=== PATIENT | female | born 1980 | race Caucasian/White ===

== ENCOUNTER 2019-08-12 05:58 | Inpatient (IN) ==
[2019-08-12] MEDS ORDERED: *HR* FentaNYL (PF) 100 MCG/2 ML VIAL IVP PRN (06:23)
[2019-08-12] MEDS ORDERED: Famotidine 20 MG/2 ML VIAL IVP PRN (06:23)
[2019-08-12] MEDS ORDERED: Naloxone 0.4 MG/ML INJ IVP PRN (06:23)
[2019-08-12] MEDS ORDERED: Metoclopramide 10 MG/2 ML VIAL IVP PRN (06:23)
[2019-08-12] MEDS ORDERED: Ringers Solution, Lactated 1,000 ML IVC SCH (06:30)
[2019-08-12] MEDS ORDERED: Oxytocin 20 units/ LR 1000 mL 20 UNIT/1,000 ML BAG IVC SCH ×2 (06:45→19:57)
[2019-08-12 07:29] LABS: Basophils % 0.4 %; Eosinophils # 0.1 K/mcL (0.0-0.6); Hematocrit 34.4 % (35.3-44.9); Hemoglobin 12.1 g/dL (11.5-15.4); Immature Granulocytes % 0.5 % (0-4); Lymphocytes # 1.9 K/mcL (0.6-4.6); Lymphocytes % 22.7 %; Mean Corpuscular HGB Conc 35.2 g/dL (31.6-35.5); Mean Corpuscular Volume 85.4 fL (83.0-100.0); Mean Platelet Volume 11.1 fL (9.4-12.4); Monocytes # 0.6 K/mcL (0.0-1.3); Monocytes % 7.4 %; Neutrophils # 5.6 K/mcL (1.6-8.9); Platelet Count 180 K/mcL (140-400); Red Blood Count 4.03 M/mcL (3.82-4.97); Red Cell Distribution Width 13.2 % (11.5-14.5); White Blood Count 8.3 K/mcL (4.3-11.1)
[2019-08-12] MEDS ORDERED: *HR* FentaNYL (PF) 100 MCG/2 ML VIAL EP ONE (07:59)
[2019-08-12] MEDS ORDERED: Ropivacaine/PF 0.2% 20 ML VIAL EP ONE (07:59)
[2019-08-12] MEDS ORDERED: Epidural Premix (fent/bupiv) 110 ML EP SCH (08:00)
[2019-08-12 09:47] LABS: Amphetamine Screen,Urine Negative ng/mL (Cutoff=1000); Barbiturate Screen,Urine Negative ng/mL (Cutoff=200); Benzodiazepines Screen,Urine Negative ng/mL (Cutoff=200); Cannabinoid Screen,Urine Negative ng/mL (Cutoff = 50); Cocaine Screen,Urine Negative ng/mL (Cutoff= 300); Opiate Screen,Urine Negative ng/mL (Cutoff=300); Phencyclidine Screen,Urine Negative ng/mL (Cutoff=25)
[2019-08-12] MEDS: EPHEDrine 50 MG/ML VIAL IVP PRN ×2 (11:32→11:57)
[2019-08-12] MEDS ORDERED: Ibuprofen 600 MG TABLET PO PRN (19:57)
[2019-08-12] MEDS ORDERED: Rho Immune Globulin 1,500 UNIT SYRINGE IM PRN (19:57)
[2019-08-13] MEDS: Acetaminophen 325 MG TABLET PO PRN ×2 (02:07→09:13)
[2019-08-13] MEDS ORDERED: Prenatal Vit/FA 1 EACH TABLET PO SCH (09:00)
[2019-08-13 15:46] VITALS: BP 116/74
== END 2019-08-13 18:52 | disposition home or self-care (01) | DRG 807 ==
LOC: 1NENULAB 05:58 → 1NENUOBS 19:43
PROVIDERS: ADMIT Obstetrics & Gynecology; ATTEND Obstetrics & Gynecology

== ENCOUNTER 2021-10-08 07:52 | Inpatient (IN) ==
[2021-10-08] MEDS ORDERED: EPHEDrine 50 MG/ML VIAL IVP PRN (09:19)
[2021-10-08] MEDS ORDERED: Epidural Premix (fent/bupiv) 110 ML EP SCH (09:30)
[2021-10-08] MEDS ORDERED: Famotidine 20 MG/2 ML VIAL IVP PRN (15:06)
[2021-10-08] MEDS ORDERED: Azithromycin 500 MG in 0.9 % Sodium Chloride 250 ML IVPB PRN (15:06)
[2021-10-08] MEDS ORDERED: Naloxone 0.4 MG/ML INJ IVP PRN (15:06)
[2021-10-08] MEDS ORDERED: Metoclopramide 10 MG/2 ML VIAL IVP PRN (15:06)
[2021-10-08] MEDS ORDERED: Oxytocin 30 UNIT/503 ML BAG IVC SCH (15:15)
[2021-10-08 15:54] LABS: Basophils % 0.2 %; Eosinophils # 0.1 K/mcL (0.0-0.6); Eosinophils % 0.8 %; Hematocrit 33.7 % (35.3-44.9); Hemoglobin 11.8 g/dL (11.5-15.4); Immature Granulocytes % 0.4 % (0-4); Lymphocytes # 1.7 K/mcL (0.6-4.6); Mean Corpuscular Hemoglobin 30.4 pg (28.0-33.3); Mean Corpuscular Volume 86.9 fL (83.0-100.0); Mean Platelet Volume 11.2 fL (9.4-12.4); Monocytes # 0.7 K/mcL (0.0-1.3); Monocytes % 7.6 %; Neutrophils # 6.5 K/mcL (1.6-8.9); Platelet Count 167 K/mcL (140-400); Red Blood Count 3.88 M/mcL (3.82-4.97); Red Cell Distribution Width 14.4 % (11.5-14.5)
[2021-10-08 15:59] LABS: Amphetamine Screen,Urine Negative ng/mL (Cutoff=1000); Barbiturate Screen,Urine Negative ng/mL (Cutoff=200); Benzodiazepines Screen,Urine Negative ng/mL (Cutoff=200); Cannabinoid Screen,Urine Negative ng/mL (Cutoff = 50); Cocaine Screen,Urine Negative ng/mL (Cutoff= 300); Opiate Screen,Urine Negative ng/mL (Cutoff=300); Phencyclidine Screen,Urine Negative ng/mL (Cutoff=25)
[2021-10-08] MEDS: Ringers Solution, Lactated 1,000 ML IVC SCH (17:18)
[2021-10-09] MEDS ORDERED: Ondansetron 4 MG/2 ML VIAL IVP ONE (07:28)
[2021-10-09] MEDS: Ringers Solution, Lactated 1,000 ML IVC SCH (07:40)
[2021-10-09] MEDS ORDERED: Benzocaine/Menthol 56 GM AEROSOL SPRAY TP PRN (14:24)
[2021-10-09] MEDS ORDERED: Lanolin 7 G OINT...G. TP PRN (14:24)
[2021-10-09] MEDS ORDERED: Measles/Mumps/Rubella Vacc 0.5 ML VIAL SQ PRN (14:24)
[2021-10-09] MEDS ORDERED: OXYTOCIN/RINGERS LACTATE 10 UNIT/166.6 ML BAG IVC ONE (14:24)
[2021-10-09] MEDS ORDERED: Rho Immune Globulin 1,500 UNIT SYRINGE IM PRN (14:24)
[2021-10-09] MEDS ORDERED: Ondansetron ODT 4 MG TAB.RAPDIS SL PRN (14:24)
[2021-10-09] MEDS: Acetaminophen 325 MG TABLET PO SCH ×2 (15:08→20:50)
[2021-10-09] MEDS: Ibuprofen 600 MG TABLET PO SCH ×2 (15:08→20:50)
[2021-10-10] MEDS: Acetaminophen 325 MG TABLET PO SCH ×2 (05:17→08:15)
[2021-10-10] MEDS: Ibuprofen 600 MG TABLET PO SCH ×2 (05:17→08:15)
[2021-10-10 05:27] VITALS: O2SAT 98
[2021-10-10 05:46] LABS: Basophils % 0.2 %; Eosinophils # 0.1 K/mcL (0.0-0.6); Eosinophils % 1.2 %; Hematocrit 29.5 % (35.3-44.9); Hemoglobin 10.4 g/dL (11.5-15.4); Immature Granulocytes % 0.6 % (0-4); Lymphocytes # 1.8 K/mcL (0.6-4.6); Lymphocytes % 21.9 %; Mean Corpuscular HGB Conc 35.3 g/dL (31.6-35.5); Mean Corpuscular Hemoglobin 30.9 pg (28.0-33.3); Mean Corpuscular Volume 87.5 fL (83.0-100.0); Mean Platelet Volume 10.9 fL (9.4-12.4); Monocytes # 0.5 K/mcL (0.0-1.3); Monocytes % 6.2 %; Neutrophils # 5.8 K/mcL (1.6-8.9); Platelet Count 133 K/mcL (140-400); Red Blood Count 3.37 M/mcL (3.82-4.97); Red Cell Distribution Width 14.3 % (11.5-14.5); Segmented Neutrophils % 69.9 %; White Blood Count 8.2 K/mcL (4.3-11.1)
[2021-10-10 07:35] VITALS: BP 97/61; PULSE 67; TEMP 98.2
[2021-10-10] MEDS ORDERED: Prenatal Vit/FA 1 EACH TABLET PO SCH (09:00)
== END 2021-10-10 13:41 | disposition home or self-care (01) | DRG 806 ==
LOC: 1NENULAB 07:52 → 1NENUOBS 10-09 14:16
PROVIDERS: ADMIT Obstetrics & Gynecology; ATTEND Obstetrics & Gynecology